=== PATIENT | female | born 1985 | race Caucasian/White ===

== ENCOUNTER → 2020-08-13 | Outpatient (CLI) | payer MEDICARE, OTHER ==
[~2020-08-13] MED LIST: BACTRIM 400-801 EACH PO; DURAGESIC 25 MCG1 EA TP; EFFEXOR XR75 MG PO; ELAVIL 50 MG TA50 MG PO; MYRBETRIQ50 MG PO; NORCO 10-325 T1 EACH PO; OMNICEF 300 MG300 MG PO; SINGULAIR10 MG PO; VISTARIL25 MG PO; ZESTRIL2.5 MG PO; ZOFRAN ODT4 MG PO; [UNRECOGNIZED DRUG - OTHER] PO
== END ==
LOC: KOH-I 12:59
DX: M47.816 Spondylosis without myelopathy or radiculopathy, lumbar region (principal); Z98.890 Other specified postprocedural states
CPT/HCPCS: 72070; 72110

== ENCOUNTER 2020-12-02 14:03 | Emergency (ER) | payer MEDICARE | END 2020-12-02 16:40 | disposition home or self-care (01) | LOC: ER1 14:03 | DX: M25.531 Pain in right wrist (principal); Z88.8 Allergy status to other drugs, medicaments and biological substances | CPT/HCPCS: 73110; 99283; J1885 ==

== ENCOUNTER 2021-03-24 13:47 | Emergency (ER) | payer MEDICARE ==
[2021-03-24 14:41] LABS: HEMOGLOBIN 12.2 gm/dl (12.3-15.3); RED BLOOD COUNT 4.86 M/UL (4.00-5.10); WHITE BLOOD COUNT 10.7 K/UL (4.5-11.0)
[2021-03-24 15:21] LABS: BUN/CREATININE RATIO 9 (0-10)
[2021-03-24] MEDS ORDERED: KEPPRA500 MG PO (16:47)
== END 2021-03-24 18:30 | disposition home or self-care (01) ==
LOC: ER1 13:47
PROVIDERS: Emergency Medicine
DX: R56.9 Unspecified convulsions (principal); Z86.59 Personal history of other mental and behavioral disorders
CPT/HCPCS: 70450; 71045; 80053; 80307; 81001; 82550; 82553; 83605; 83874; 84484; 85025; 93005; 96374; 99285; J1953

== ENCOUNTER → 2021-07-05 | Outpatient (CLI) | payer MEDICARE ==
[~2021-07-05] MED LIST changes: +KEPPRA500 MG PO
== END ==
LOC: EMI 06-28 09:00
DX: G40.909 Epilepsy, unspecified, not intractable, without status epilepticus (principal); R94.02 Abnormal brain scan
CPT/HCPCS: 70553; A9577

== ENCOUNTER 2021-10-07 07:48 | Observation (INO) | payer MEDICARE ==
[~2021-10-07] VITALS: Ht 165.1 cm; Wt 117.9 kg
[2021-10-07 08:33] LABS: HEMOGLOBIN 13.7 gm/dl (12.3-15.3); RED BLOOD COUNT 5.59 M/UL (4.00-5.10); WHITE BLOOD COUNT 7.7 K/UL (4.5-11.0)
[2021-10-07 09:08] LABS: BUN/CREATININE RATIO 11 (0-10)
[2021-10-07 09:32] LABS: ADENOVIRUS F 40/41 Not Detected (Negative); ASTROVIRUS Not Detected (Negative); CAMPYLOBACTER Not Detected (Negative); CRYPTOSPORIDIUM Not Detected (Negative); E.COLI 0157 Not Detected (Negative); ENTAMOEBA HISTOLYTICA Not Detected (Negative); ENTEROAGGREGATIVE E.COLI (EAEC Not Detected (Negative); ENTEROPATHOGENIC E.COLI (EPEC) Not Detected (Negative); ENTEROTOXIGENIC E.COLI (ETEC) Not Detected (Negative); GIARDIA LAMBLIA Not Detected (Negative); NOROVIRUS GI/GII Not Detected (Negative); PLESIOMONAS SHIGELLOIDES Not Detected (Negative); ROTOVIRUS A Not Detected (Negative); SALMONELLA Not Detected (Negative); SAPOVIRUS Not Detected (Negative); SHIG/ENTEROINVAS.ECOLI (EIEC) Not Detected (Negative); SHIGA-LIK TOX.PRO.E.COLI (STEC Not Detected (Negative); VIBRIO Not Detected (Negative); VIBRIO CHOLERAE Not Detected (Negative); YERSINIA ENTEROCOLITICA Not Detected (Negative)
[2021-10-07 11:41] LABS: CLOSTRIDIUM DIFFICILE TOX A/B DETECTED (Negative)
[2021-10-07] MEDS ORDERED: SERTRALINE HCL50 MG PO (12:19)
[2021-10-07] MEDS ORDERED: LEVETIRACETAM500 MG PO (12:19)
[2021-10-07] MEDS ORDERED: AMOX TR-K CLV1 EAC4 PO (12:19)
[2021-10-07] MEDS ORDERED: FLONASE ALLER15.8 ML (12:20)
[2021-10-07] MEDS ORDERED: BUSPIRONE HCL30 MG PO (12:20)
[2021-10-07] MEDS ORDERED: LAMOTRIGINE150 MG PO (12:20)
[2021-10-07] MEDS ORDERED: TRAZODONE HCL50 MG PO (12:20)
[2021-10-07] MEDS ORDERED: SOLIFENACIN SUC10 MG PO (12:20)
[2021-10-07] MEDS ORDERED: ONDANSETRON ODT8 MG PO (12:21)
[2021-10-08 03:02] LABS: BUN/CREATININE RATIO 13 (0-10)
[2021-10-08 03:11] LABS: HEMOGLOBIN 11.9 gm/dl (12.3-15.3); WHITE BLOOD COUNT 7.7 K/UL (4.5-11.0)
[2021-10-08 03:44] LABS: RED BLOOD COUNT 4.81 M/UL (4.00-5.10)
[2021-10-08] MEDS ORDERED: VANCOMYCIN HCL125 MG PO (11:09)
--- NOTE | 2021-10-08 12:09 | NUR ---
PATIENT CATHED HERSELF AND DC THE CATHETER WELL, TODAY.
== END 2021-10-08 12:30 | disposition home or self-care (01) ==
LOC: ER1 07:48 → MED SURG 4 12:09 → CDU 12:09 → MED SURG 4 16:52
PROVIDERS: Emergency Medicine; ADMIT Internal Medicine
DX: A04.72 Enterocolitis due to Clostridium difficile, not specified as recurrent (principal); E87.6 Hypokalemia; Q05.9 Spina bifida, unspecified; F31.9 Bipolar disorder, unspecified; F17.290 Nicotine dependence, other tobacco product, uncomplicated; Z20.822 Contact with and (suspected) exposure to COVID-19; Z98.84 Bariatric surgery status; Z88.1 Allergy status to other antibiotic agents; Z88.5 Allergy status to narcotic agent; Z88.8 Allergy status to other drugs, medicaments and biological substances; Z91.040 Latex allergy status; Z86.19 Personal history of other infectious and parasitic diseases; Z79.899 Other long term (current) drug therapy
CPT/HCPCS: 0240U; 36415; 71045; 80048; 80053; 81001; 82550; 82553; 83605; 83690; 83735; 84484; 84703; 85025; 87040; 87507; 93005; 96374; 96376; 99285; G0378; J2270; Q9967

== ENCOUNTER 2021-11-06 19:03 | Emergency (ER) | payer MEDICARE ==
[~2021-11-06 19:03] MED LIST changes: +AMOX TR-K CLV1 EAC4 PO; +BUSPIRONE HCL30 MG PO; +FLONASE ALLER15.8 ML; +LAMOTRIGINE150 MG PO; +LEVETIRACETAM500 MG PO; +ONDANSETRON ODT8 MG PO; +SERTRALINE HCL50 MG PO; +SOLIFENACIN SUC10 MG PO; +TRAZODONE HCL50 MG PO; +VANCOMYCIN HCL125 MG PO
[2021-11-06 21:39] LABS: HEMOGLOBIN 13.6 gm/dl (12.3-15.3); RED BLOOD COUNT 5.55 M/UL (4.00-5.10); WHITE BLOOD COUNT 16.6 K/UL (4.5-11.0)
[2021-11-06 21:58] LABS: BUN/CREATININE RATIO 12 (0-10)
[2021-11-07] MEDS ORDERED: ZOFRAN ODT 4 MG4 MG PO (02:58)
[2021-11-07] MEDS ORDERED: METRONIDAZOLE500 MG PO (02:58)
== END 2021-11-07 03:13 | disposition home or self-care (01) ==
LOC: ER1 19:03
PROVIDERS: Family Medicine
DX: K51.30 Ulcerative (chronic) rectosigmoiditis without complications (principal); Z87.19 Personal history of other diseases of the digestive system; Z88.8 Allergy status to other drugs, medicaments and biological substances; F17.290 Nicotine dependence, other tobacco product, uncomplicated
CPT/HCPCS: 80053; 81001; 83690; 84703; 85025; 99284; Q9967

== ENCOUNTER 2022-01-19 11:04 | Emergency (ER) | payer MEDICARE ==
[~2022-01-19 11:04] MED LIST changes: +METRONIDAZOLE500 MG PO; +ZOFRAN ODT 4 MG4 MG PO
[2022-01-19 12:34] LABS: HEMOGLOBIN 12.9 gm/dl (12.3-15.3); RED BLOOD COUNT 5.24 M/UL (4.00-5.10); WHITE BLOOD COUNT 14.1 K/UL (4.5-11.0)
[2022-01-19 12:54] LABS: BUN/CREATININE RATIO 9 (0-10)
[2022-01-19] MEDS ORDERED: METRONIDAZOLE500 MG PO (16:41)
[2022-01-19] MEDS ORDERED: VANCOCIN HCL125 MG PO (16:41)
[2022-01-19] MEDS ORDERED: HYDROCODON-ACE1 EAC4 PO (17:24)
== END 2022-01-19 17:31 | disposition home or self-care (01) ==
LOC: ER1 11:04
PROVIDERS: Student in an Organized Health Care Education/Training Program
DX: K52.9 Noninfective gastroenteritis and colitis, unspecified (principal); E87.6 Hypokalemia; Z20.822 Contact with and (suspected) exposure to COVID-19
CPT/HCPCS: 0240U; 80053; 81001; 83690; 84703; 85025; 96361; 96374; 96375; 99284; J2270; J2405; Q9967